=== PATIENT | male | born 1990 | race Caucasian/White ===

== ENCOUNTER 2024-12-19 13:57 | Emergency (ER) | payer MEDICAID, SELFPAY ==
[2024-12-19 13:58] VITALS: BP 125/91; PULSE 81; RESP 16; TEMP 36.4; O2SAT 99
[2024-12-19 14:11] VITALS: BMI 24.3
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
[2024-12-19 16:03] VITALS: BP 122/85; PULSE 65; RESP 16; TEMP 36.4; O2SAT 99
== END 2024-12-19 16:09 | disposition home or self-care (01) ==
PROVIDERS: Emergency Provider Student in an Organized Health Care Education/Training Program; Visit Provider Student in an Organized Health Care Education/Training Program
DX: S16.1XXA Strain of muscle, fascia and tendon at neck level, initial encounter (principal); Z87.891 Personal history of nicotine dependence; S46.911A Strain of unspecified muscle, fascia and tendon at shoulder and upper arm level, right arm, initial encounter; V43.62XA Car passenger injured in collision with other type car in traffic accident, initial encounter
CPT/HCPCS: 70450; 70496; 70498; 72125; 73000; 73030; 99283; Q9967; A4216